=== PATIENT | male | born 1945 | race Caucasian/White ===

== ENCOUNTER 2019-03-23 19:05 | Inpatient (IN) | payer MEDICARE ==
[~2019-03-23] VITALS: Ht 182.9 cm; Wt 76.7 kg
[~2019-03-23 19:05] MED LIST: HEPARIN/D5W DRIP 500 ML IV PRN
--- NOTE | 2019-03-23 19:24 | NUR ---
Dr. Puentes at bedside for MSE.
[2019-03-23 20:02] LABS: BASOPHILS # (AUTO) 0.1 K/uL (0.0-8.0); EOSINOPHILS % (AUTO) 0.1 % (0.0-7.0); HEMOGLOBIN 12.4 g/dL (12.5-16.3); LYMPHOCYTES # (AUTO) 2.2 K/uL (20.0-40.0); LYMPHOCYTES % (AUTO) 25.1 % (20.5-51.5); MEAN CORPUSCULAR HEMOGLOBIN 29.8 uug (23.8-33.4); MEAN CORPUSCULAR HGB CONC 33 g/dL (32.5-36.3); MEAN CORPUSCULAR VOLUME 91.2 fL (73.0-96.2); MONOCYTES # (AUTO) 0.6 K/uL (2.0-10.0); MONOCYTES % (AUTO) 7.2 % (0.0-11.0); NEUTROPHILS # (AUTO) 5.8 K/uL (1.8-8.9); NEUTROPHILS % (AUTO) 66.6 % (38.5-71.5); PLATELET COUNT (AUTO) 244 K/uL (152-348); RED BLOOD CELL COUNT(AUTO) 4.17 MIL/uL (4.06-5.63); WHITE BLOOD COUNT (AUTO) 8.7 K/uL (3.6-10.2)
[2019-03-23 20:08] LABS: CREATININE 1.2 mg/dL (0.6-1.3); POTASSIUM 3.5 mmol/L (3.5-5.1)
[2019-03-23 20:22] LABS: BILIRUBIN,TOTAL 0.6 mg/dL (0.2-1.0); TOTAL PROTEIN, SERUM 7.4 g/dL (6.4-8.2)
--- NOTE | 2019-03-23 20:28 | NUR ---
Ultrasound at bedside.
[2019-03-23] MEDS ORDERED: ENOXAPARIN SODIUM 80 MG/0.8 ML DISP.SYRIN SQ ONE ×2 (20:51→21:00)
[2019-03-23] MEDS ORDERED: HYDR-4384 PO (21:53)
[2019-03-23] MEDS ORDERED: SUMA100T PO (21:53)
--- NOTE | 2019-03-23 21:54 | NUR ---
Called [facility] to page Karla Ponce NP.
--- NOTE | 2019-03-23 22:16 | NUR ---
Dr. Puentes on panel call with Karla Ponce NP. Patient accepted for admission to [facility], diagnosis: Right Arm deep vein thrombosis.
--- NOTE | 2019-03-23 22:21 | NUR ---
Report given to Will liquified natural gas specialist.
[2019-03-23] MEDS ORDERED: MAGNESIUM HYDROXIDE 30 ML LIQUID UDC PO PRN (22:30)
[2019-03-23] MEDS ORDERED: ONDANSETRON 4 MG/2 ML VIAL IV PRN (22:30)
[2019-03-23] MEDS ORDERED: ACETAMINOPHEN 325 MG TABLET PO PRN (22:30)
[2019-03-23] MEDS ORDERED: Z GUARD REMEDY PASTE 57 GM TUBE TOP PRN (22:30)
--- NOTE | 2019-03-23 22:50 | NUR ---
ADMITTED PATIENT IN TELE FLOOR UNDER THE CARE OF VIPIN GRANDE NP. PATIENT ALERT ORIENTED, CONTINENT, WITH R HAND THRU ARMS SWELLING 2+ EDEMA. TELE MONITOR A FIB 76. PATIENT HAS NO COMPLAIN OF PAIN AT THIS TIME. CONT TO MONITOR.
[2019-03-23 23:03] VITALS: BP 174/82
[2019-03-24] MEDS: IV NS 1000 ML 1,000 ML IV PRN (00:26)
[2019-03-24 00:48] VITALS: BP 166/86
--- NOTE | 2019-03-24 01:02 | NUR ---
PHARMACY CALLED AND SAID THAT TO HOLD HEPARIN DRIP AT THIS TIME, DUE PATIENT RECEIVED LOVENOX MEDICATION FROM ER DEPT. AND HEPARIN CAN BE STARTED TODAY AT 0900.
--- NOTE | 2019-03-24 03:35 | NUR ---
PATIENT ASLEEP BUT EASILY AROUSABLE, NO SOB NO CHEST PAIN, PATIENT HAS EPISODE OF BRADYCARDIA 59 BUT NOT SUSTAINABLE. CONT TO MONITOR
[2019-03-24 04:48] VITALS: BP 139/68
[2019-03-24 05:54] LABS: BASOPHILS # (AUTO) 0.1 K/uL (0.0-8.0); BASOPHILS % (AUTO) 1.5 % (0.0-2.0); EOSINOPHILS % (AUTO) 0.5 % (0.0-7.0); HEMATOCRIT 35.3 % (36.7-47.1); HEMOGLOBIN 11.5 g/dL (12.5-16.3); LYMPHOCYTES # (AUTO) 3.1 K/uL (20.0-40.0); LYMPHOCYTES % (AUTO) 37.1 % (20.5-51.5); MEAN CORPUSCULAR HEMOGLOBIN 30.4 uug (23.8-33.4); MEAN CORPUSCULAR HGB CONC 33 g/dL (32.5-36.3); MONOCYTES # (AUTO) 0.6 K/uL (2.0-10.0); MONOCYTES % (AUTO) 6.8 % (0.0-11.0); NEUTROPHILS # (AUTO) 4.6 K/uL (1.8-8.9); NEUTROPHILS % (AUTO) 54.1 % (38.5-71.5); PLATELET COUNT (AUTO) 209 K/uL (152-348); WHITE BLOOD COUNT (AUTO) 8.4 K/uL (3.6-10.2)
[2019-03-24] MEDS: PANTOPRAZOLE SODIUM 40 MG TABLET.DR PO SCH (06:19)
[2019-03-24 06:38] LABS: CREATININE 1.1 mg/dL (0.6-1.3); PHOSPHOROUS 3.5 mg/dL (2.5-4.9); POTASSIUM 3.4 mmol/L (3.5-5.1)
[2019-03-24 06:44] LABS: THYROID STIMULATING HORMONE 2.912 mIU/mL (0.358-3.740)
[2019-03-24] MEDS ORDERED: HEPARIN SODIUM,PORCINE 5,000 UNITS/ML VIAL IV PRN ×2 (06:45)
--- NOTE | 2019-03-24 07:08 | NUR ---
PATIENT ALERT ORIENTED, NO SOB NO CHEST PAIN, TELE MONITOR A FIB. R ARM STILL SWOLLEN, KEPT IT ELEVATED, CONT TO MONITOR.
--- NOTE | 2019-03-24 07:30 | NUR ---
Awake, alert, oriented x 4. RUE swollen, supported with pillow. Discussed plan of care
[2019-03-24] MEDS ORDERED: HEPARIN SODIUM,PORCINE 5,000 UNITS/ML VIAL IV ONE (09:00)
[2019-03-24] MEDS ORDERED: POTASSIUM CHLORIDE 20 MEQ TAB.PRT.SR PO ONE (09:15)
[2019-03-24] MEDS: HEPARIN/D5W DRIP 500 ML IV PRN ×2 (09:42→18:16)
[2019-03-24] MEDS ORDERED: IV NORMAL SALINE 250 ML IV ONE (10:49)
[2019-03-24] MEDS ORDERED: IOHEXOL 350 100 ML INFUS..BTL ONE (10:49)
[2019-03-24] MEDS ORDERED: SWABABLE VALVE TRANSFER SET EA MC ONE (10:49)
[2019-03-24 11:34] VITALS: BP 152/89
--- NOTE | 2019-03-24 12:30 | NUR ---
for CTA neck, chest, abdomen pelvis. Transported to Radiology. Off Heparin drip. Next PTT draw changed to 1630.
[2019-03-24] MEDS ORDERED: LORAZEPAM 2 MG/1 ML VIAL IV ONE (13:00)
--- NOTE | 2019-03-24 13:15 | NUR ---
Not able to finish CTA, with orders of Ativan, dose given
--- NOTE | 2019-03-24 17:00 | NUR ---
PTT 111.5 Heparin drip on hold, will resume in an hour decreased by 3 units
--- NOTE | 2019-03-24 18:00 | NUR ---
Heparin drip resumed with decreased rate by 3 units to 1050 units at 21 ml/hr. Repeat PTT ordered for 2400
[2019-03-24 18:07] VITALS: BP 130/76
--- NOTE | 2019-03-24 19:30 | NUR ---
RECEIVED PT AWAKE, ALERT AND ORIENTEDX4. PT IN NO ACUTE DISTRESS. IV INTACT. PT ON HEPARIN DRIP. SAFETY AND COMFORT PROVIDED. WILL CONTINUE TO MONITOR.
[2019-03-24 20:17] VITALS: BP 134/74
[2019-03-24] MEDS: HYDROCODONE/APAP 5-325MG TABLET PO PRN (22:28)
[2019-03-25 00:23] VITALS: BP 132/60
--- NOTE | 2019-03-25 00:44 | NUR ---
ANNALISA FROM LABORATORY CALLED FOR THE APTT RESULT. IT WAS 78.9. BASED ON THE PROTOCOL DECREASE DRIP BY 2 UNITS / KG/ H. PT IN NO ACUTE DISTRESS. WILL CONTINUE TO MONITOR.
--- NOTE | 2019-03-25 00:45 | NUR ---
REPEAT PTT ON 0700H
[2019-03-25] MEDS: HEPARIN/D5W DRIP 500 ML IV PRN ×2 (01:55→10:03)
[2019-03-25] MEDS: HYDROCODONE/APAP 5-325MG TABLET PO PRN ×5 (03:47→20:34)
[2019-03-25 04:00] VITALS: BP 125/68
[2019-03-25] MEDS: PANTOPRAZOLE SODIUM 40 MG TABLET.DR PO SCH (06:05)
[2019-03-25 06:20] LABS: THYROID STIMULATING HORMONE 2.605 mIU/mL (0.358-3.740)
[2019-03-25 06:22] LABS: POTASSIUM 3.7 mmol/L (3.5-5.1)
--- NOTE | 2019-03-25 06:36 | NUR ---
PT SLEPT INTERMITTENTLY. PT IN NO ACUTE DISTRESS. PT GIVEN 2 NORCO FOR PAIN ON HIS SHOULDERS.PRESCRIBED MEDICATION GIVEN AND PT TOLERATED IT WELL. SAFETY AND COMFORT PROVIDED. WILL CONTINUE TO MONITOR. WILL ENDORSE TO INCOMING NURSE FOR CONTINUITY OF CARE.
--- NOTE | 2019-03-25 07:37 | NUR ---
PATIENT RECEIVED IN BED WITH HEPARIN DRIP IN PROGRESS AT 900 UNITS PER HOUR ORDERED PENDING PTT RESULTS THIS AM PATIENT IS AWAKE ALERT AND ORIENTED NO S/S OF PAIN OR DISCOMFORTS AT THIS TIME.CALL LIGHTS AND PERSONAL BELONGINGS ARE WITHIN EASY REACH WILL CONTINUE TO OBSERVE.
[2019-03-25 09:16] LABS: BASOPHILS # (AUTO) 0.1 K/uL (0.0-8.0); BASOPHILS % (AUTO) 1.3 % (0.0-2.0); EOSINOPHILS # (AUTO) 0.1 K/uL (0.0-0.7); EOSINOPHILS % (AUTO) 1.4 % (0.0-7.0); HEMATOCRIT 35.9 % (36.7-47.1); HEMOGLOBIN 11.5 g/dL (12.5-16.3); LYMPHOCYTES # (AUTO) 2.5 K/uL (20.0-40.0); LYMPHOCYTES % (AUTO) 35.2 % (20.5-51.5); MEAN CORPUSCULAR HGB CONC 32 g/dL (32.5-36.3); MEAN CORPUSCULAR VOLUME 93.4 fL (73.0-96.2); MONOCYTES # (AUTO) 0.5 K/uL (2.0-10.0); MONOCYTES % (AUTO) 6.5 % (0.0-11.0); NEUTROPHILS % (AUTO) 55.6 % (38.5-71.5); PLATELET COUNT (AUTO) 226 K/uL (152-348); RED BLOOD CELL COUNT(AUTO) 3.84 MIL/uL (4.06-5.63); WHITE BLOOD COUNT (AUTO) 7.2 K/uL (3.6-10.2)
[2019-03-25] MEDS ORDERED: SUMATRIPTAN SUCCINATE 50 MG TABLET PO PRN (10:00)
[2019-03-25 11:25] VITALS: BP 140/72
--- NOTE | 2019-03-25 11:38 | NUR ---
SEEN AND EXAMINED BY EDUIN [employer]ER[employer] HELICOPTER PILOT WITH NEW ORDERS AND NOTED REMAIN ON HEPARIN DRIP ORDERED WITH NO ADVERSE OR ALLERGIC REACTIONS AT THIS TIME.
[2019-03-25 13:19] LABS: *OCCULT BLOOD STOOL NEGATIVE (NEGATIVE)
--- NOTE | 2019-03-25 14:35 | NUR ---
PATIENT CONTINUE ON HEPARIN DRIP ORDERED WITH ADVERSE EFFECT PAIN MEDICATIONS ORDERED PER HIS REQUEST AND EFFECTIVE WILL CONTINUE TO OBSERVE.
[2019-03-25 15:37] VITALS: BP 148/86
[2019-03-25 15:56] LABS: *BILIRUBIN,URIN NEGATIVE (NEGATIVE); *BLOOD, URINE NEGATIVE (NEGATIVE); *CLARITY,URINE CLEAR (CLEAR); *COLOR,URINE YELLOW (YELLOW); *KETONES,URINE NEGATIVE (NEGATIVE); LEUKOCYTE ESTERASE ,URINE NEGATIVE (NEGATIVE); NITRITE, URINE NEGATIVE (NEGATIVE); UGLUCOSE NEGATIVE (NEGATIVE)
[2019-03-25] MEDS: IV NS 1000 ML 1,000 ML IV PRN (16:05)
[2019-03-25 16:22] LABS: WBC,URINE 0-3 /HPF (0-3)
--- NOTE | 2019-03-25 18:00 | NUR ---
LEFT ARM REMAINS SWOLLEN ELEVATED ON THE PILLOW REMAINS ON HEPARIN DRIP ORDERED PTT ORDERED FOR TOMORROW AM NO BLEEDING NOTED ALERT ORIENTED AND VERBALISED NEEDS WILL CONTINUE TO OBSERVE AND PROMOTE COMFORT
--- NOTE | 2019-03-25 19:30 | NUR ---
Received report from outgoing nurse. Patient is received in bed, awake, alert and verbally responsive. Pt is ambulatory and had just come back from the bathroom at this time. Pt able to have bowel movement (x3 well formed stool). No issues with urination. Complains of generalized body pain, 4/10 but slowly increasing, according to him, pain meds given earlier during the day is "probably wearing" off. According to him, he has chronic pain and needs his medications around the clock. Will administer when able to. Pt denies chest pain, headache, or any other discomfort aside from the generalized body pain/also on r shoulder. R arm still swollen, but patient is able to open and close fists, according to him, it is a great improvement from yesterday. Heparin drip is still running at 900 units (18cc/hr), along with IV fluids of NS at 25cc/hr on L AC 20G. No issues with IV site. Patent with no signs of infiltration. Patient also without signs of bleeding. Patient is showing AFIB on Tele, controlled between 70-90 bpm. Will continue to monitor patient and manage symptoms.
[2019-03-25 20:09] VITALS: BP 139/84
--- NOTE | 2019-03-25 22:30 | NUR ---
Patient with 2 episodes of increased HR on Afib above 100, highest went up to 140 bpm (at around 2150). Not sustained, goes back to 70-90s rate after 1-2 minutes. Checked on patient at this time, asymptomatic. Denies chest pain/arm pain/head ache. Same level of mental status and cognitive level. BP checked: 160/95. Reviewed records and relayed to MD. New order received for Metoprolol 25 mg now and then Q12H. Will carryout order and give medications once cleared by pharmacy/available. Patient kept on hourly monitoring, will report to MD for any further changes.
[2019-03-25] MEDS ORDERED: METOPROLOL TARTRATE 25 MG TABLET PO ONE (23:38)
[2019-03-26] VITALS: BP 161/88
[2019-03-26] MEDS: HYDROCODONE/APAP 5-325MG TABLET PO PRN ×5 (00:43→21:59)
--- NOTE | 2019-03-26 02:25 | NUR ---
Rechecked BP: 148/83. Pt verbalizes feeling anxious and unable to sleep. Denies chest pain, headache, or any discomfort. Wilfrido Elias HEAV[employer] EQUIPMENT SERVICE TECHNICIAN notified, received orders. Noted and carried out.
[2019-03-26] MEDS ORDERED: LORAZEPAM 0.5 MG TABLET PO PRN (02:45)
[2019-03-26 04:56] VITALS: BP 143/68
[2019-03-26] MEDS: PANTOPRAZOLE SODIUM 40 MG TABLET.DR PO SCH (06:05)
[2019-03-26 06:23] LABS: BASOPHILS % (AUTO) 0.6 % (0.0-2.0); EOSINOPHILS # (AUTO) 0.1 K/uL (0.0-0.7); EOSINOPHILS % (AUTO) 1.7 % (0.0-7.0); HEMATOCRIT 35.4 % (36.7-47.1); HEMOGLOBIN 11.5 g/dL (12.5-16.3); LYMPHOCYTES # (AUTO) 2.8 K/uL (20.0-40.0); LYMPHOCYTES % (AUTO) 36.3 % (20.5-51.5); MEAN CORPUSCULAR HEMOGLOBIN 30.3 uug (23.8-33.4); MEAN CORPUSCULAR HGB CONC 33 g/dL (32.5-36.3); MEAN CORPUSCULAR VOLUME 93.2 fL (73.0-96.2); MONOCYTES # (AUTO) 0.5 K/uL (2.0-10.0); MONOCYTES % (AUTO) 6.2 % (0.0-11.0); NEUTROPHILS # (AUTO) 4.3 K/uL (1.8-8.9); NEUTROPHILS % (AUTO) 55.2 % (38.5-71.5); PLATELET COUNT (AUTO) 219 K/uL (152-348); WHITE BLOOD COUNT (AUTO) 7.8 K/uL (3.6-10.2)
--- NOTE | 2019-03-26 06:26 | NUR ---
Patient BP stabilized after x1 dose of Metoprolol 25 mg. However, HR decreased from 80-115 Afib to 55-65 Afib. Pt with no signs of distress or discomfort. Denies any chest pain or headache. However, with generalized body pain 10/19, [place] 5/325 mg given. Slept intermittently after Ativan 0.5mg give at around 0230. Heparin drip still running at 900 units/hr with no signs of bleeding. Needs attended at this time will continue to monitor and endorse accordingly.
[2019-03-26 06:35] LABS: CREATININE 1.2 mg/dL (0.6-1.3); POTASSIUM 3.9 mmol/L (3.5-5.1)
--- NOTE | 2019-03-26 08:00 | NUR ---
AWAKE ALERT AND ORIENT X3 NO SS F PAIN OR DISTRESS. PATIENT SATURATING 98%
[2019-03-26 08:08] LABS: *IMMUNOGLOBULIN G, SERUM 946 mg/dL (700-1600); HEPATITIS B SURFACE AB Non Reactive (.); HEPATITIS B SURFACE AG Negative (Negative); IMMUNOGLOBULIN A, SERUM 175 mg/dL (61-437); IMMUNOGLOBULIN M, SERUM 39 mg/dL (15-143)
[2019-03-26] MEDS: FERROUS SULFATE 325 MG TABEC PO SCH (08:40)
[2019-03-26] MEDS: METOPROLOL TARTRATE 25 MG TABLET PO SCH ×3 (08:51→20:59)
[2019-03-26 11:22] VITALS: BP 124/88
--- NOTE | 2019-03-26 12:00 | NUR ---
NO ACUTE CHANGE CONTINUE HEPARIN DRIP PER PROTOCOL
[2019-03-26 12:06] LABS: AFP, TUMOR MARKER 1.2 ng/mL (0.0-8.3)
[2019-03-26] MEDS: HEPARIN/D5W DRIP 500 ML IV PRN (13:58)
--- NOTE | 2019-03-26 15:30 | NUR ---
CONTINUE WITH HEPARIN DRIP PER PROTOCOL. PTT 63. NO CHANGE IN HEPARIN DRIP AT 900 UNITS/18 ML/HR. NO ACTIVE OR SS OF BLEEDING
[2019-03-26 15:53] VITALS: BP 142/49
[2019-03-26 20:03] VITALS: BP 121/62
[2019-03-27 01:26] VITALS: BP 123/73
[2019-03-27] MEDS: HYDROCODONE/APAP 5-325MG TABLET PO PRN (03:33)
[2019-03-27 05:34] VITALS: BP 133/65
[2019-03-27] MEDS: PANTOPRAZOLE SODIUM 40 MG TABLET.DR PO SCH (06:05)
[2019-03-27 06:06] LABS: A/G RATIO 1.3 (0.7-1.7); ALBUMIN 3.3 g/dL (2.9-4.4); ALPHA-1-GLOBULIN 0.3 g/dL (0.0-0.4); ALPHA-2-GLOBULIN 0.6 g/dL (0.4-1.0); BETA GLOBULIN 0.9 g/dL (0.7-1.3); GAMMA GLOBULIN 0.8 g/dL (0.4-1.8); GLOBULIN, TOTAL 2.6 g/dL (2.2-3.9); M-SPIKE Not Observed g/dL (Not Observed)
[2019-03-27 06:43] LABS: BASOPHILS # (AUTO) 0.1 K/uL (0.0-8.0); BASOPHILS % (AUTO) 1.2 % (0.0-2.0); EOSINOPHILS # (AUTO) 0.2 K/uL (0.0-0.7); EOSINOPHILS % (AUTO) 3.1 % (0.0-7.0); HEMATOCRIT 34.1 % (36.7-47.1); HEMOGLOBIN 11.1 g/dL (12.5-16.3); LYMPHOCYTES # (AUTO) 2.6 K/uL (20.0-40.0); LYMPHOCYTES % (AUTO) 37.2 % (20.5-51.5); MEAN CORPUSCULAR HEMOGLOBIN 29.6 uug (23.8-33.4); MEAN CORPUSCULAR HGB CONC 33 g/dL (32.5-36.3); MEAN CORPUSCULAR VOLUME 90.6 fL (73.0-96.2); MONOCYTES # (AUTO) 0.5 K/uL (2.0-10.0); MONOCYTES % (AUTO) 6.9 % (0.0-11.0); NEUTROPHILS # (AUTO) 3.6 K/uL (1.8-8.9); NEUTROPHILS % (AUTO) 51.6 % (38.5-71.5); PLATELET COUNT (AUTO) 226 K/uL (152-348); RED BLOOD CELL COUNT(AUTO) 3.76 MIL/uL (4.06-5.63)
[2019-03-27 06:55] LABS: BILIRUBIN,TOTAL 0.6 mg/dL (0.2-1.0); CREATININE 1.2 mg/dL (0.6-1.3); MAGNESIUM 2.1 mg/dL (1.8-2.4); PHOSPHOROUS 4.4 mg/dL (2.5-4.9); POTASSIUM 3.9 mmol/L (3.5-5.1); TOTAL PROTEIN, SERUM 6.4 g/dL (6.4-8.2)
--- NOTE | 2019-03-27 07:10 | NUR ---
Patient slept intermittently. PRN [place] 5-325mg given x 2 this shift for pain on both shoulders. Afib on Tele monitor. IV on L AC intact and patent, patient still on Heparin drip 900 units at 18cc/hr. All needs attended. Will endorse accordingly
--- NOTE | 2019-03-27 08:00 | NUR ---
AWAKE ALERT AND ORIENTED X3 C/O MIGRAINE ESPINAL. NO SS OF DISTRESS, DIZZINESS, N/V. SR ON MONITOR
[2019-03-27] MEDS: FERROUS SULFATE 325 MG TABEC PO SCH (08:26)
[2019-03-27] MEDS: METOPROLOL TARTRATE 25 MG TABLET PO SCH (08:27)
--- NOTE | 2019-03-27 08:29 | NUR ---
lopessor not given HR 55/min
--- NOTE | 2019-03-27 10:19 | NUR ---
MEDICATED FOR SEVERE HEADACHE WITH IMITREX WITH RELIEF. SR ON MONITOR. PLAN DC HOME TODAY. SEE RIPENING ROOM OPERATOR NOTES
[2019-03-27 11:09] LABS: BETA-2-GLYCOPROTEIN IGG/M/A < 9 (0-25)
[2019-03-27 11:46] VITALS: BP 137/75
[2019-03-27] MEDS ORDERED: RIVAROXABAN 15 MG TABLET PO SCH (13:15)
[2019-03-27] MEDS ORDERED: FERR325T28 PO (13:18)
[2019-03-27] MEDS ORDERED: RIVA15TA PO (13:18)
[2019-03-27] MEDS ORDERED: METO25TA6 PO (13:18)
--- NOTE | 2019-03-27 14:16 | NUR ---
MEDICATION AND DISCHARGE INSTRUCTION GIVEN AND FOLLOW-UP WITH PCP. PATIENT SAID WILL CALL FOR HIS APPOINTMENT
--- NOTE | 2019-03-27 14:47 | NUR ---
discharged home stable via private car with RX instruction and education by pharmacy
[2019-03-27 20:06] LABS: PTT-LA 40.9 sec (0.0-51.9); THROMBIN NEUTRALIZATION 21.7 sec (0.0-23.0); THROMBIN TIME >150.0 sec (0.0-23.0); THROMBIN TIME MIX >150.0 sec (0.0-23.0)
[2019-03-27 21:06] LABS: LUPUS INTERPRETATION Comment: (.)
== END 2019-03-27 14:40 | disposition home or self-care (01) | DRG 300 ==
LOC: ER 19:11 → TELE3 22:28
PROVIDERS: ADMIT Registered Nurse
DX: I82.621 Acute embolism and thrombosis of deep veins of right upper extremity (principal); I31.1 Chronic constrictive pericarditis; G43.909 Migraine, unspecified, not intractable, without status migrainosus; I48.91 Unspecified atrial fibrillation; F11.10 Opioid abuse, uncomplicated; I82.611 Acute embolism and thrombosis of superficial veins of right upper extremity; K74.60 Unspecified cirrhosis of liver; I08.3 Combined rheumatic disorders of mitral, aortic and tricuspid valves; D63.8 Anemia in other chronic diseases classified elsewhere; I67.2 Cerebral atherosclerosis; N18.9 Chronic kidney disease, unspecified; D32.0 Benign neoplasm of cerebral meninges; R79.89 Other specified abnormal findings of blood chemistry; Z95.828 Presence of other vascular implants and grafts
CPT/HCPCS: 36415; 70450; 70491; 71275; 82105; 82784; 83550; 83735; 84100; 84155; 84165; 84443; 85025; 85305; 85613; 85651; 85730; 86334; 86706; 86803; 87340; 93005; 93307; A4663; G0378; J1644; J1650; J2060; J7030; J7050; Q9967

== ENCOUNTER 2020-03-01 09:43 | Emergency (ER) | payer MEDICARE ==
[~2020-03-01] VITALS: Ht 182.9 cm; Wt 68.0 kg
[~2020-03-01 09:43] MED LIST changes: +FERR325T28 PO; -HEPARIN/D5W DRIP 500 ML IV PRN; +HYDR-4384 PO; +METO25TA6 PO; +RIVA15TA PO; +SUMA100T PO
== END 2020-03-01 10:49 | disposition left against medical advice (07) ==
LOC: ER 09:43
DX: Z75.3 Unavailability and inaccessibility of health-care facilities (principal)

== ENCOUNTER 2020-04-15 05:01 | Emergency (ER) | payer MEDICARE ==
[~2020-04-15] VITALS: Ht 182.9 cm; Wt 70.3 kg
--- NOTE | 2020-04-15 05:39 | NUR ---
Dr Puentes into eval patient.
--- NOTE | 2020-04-15 06:10 | NUR ---
Patient discharged to home in stable condition. Written and verbal after care instructions given. Patient verbalizes understanding of instructions. Stressed follow up or return to ER for worsening s/s.
== END 2020-04-15 06:11 | disposition home or self-care (01) ==
LOC: ER 05:12
DX: F11.23 Opioid dependence with withdrawal (principal); Z79.899 Other long term (current) drug therapy; R03.0 Elevated blood-pressure reading, without diagnosis of hypertension
CPT/HCPCS: A4663

== ENCOUNTER 2020-08-29 19:40 | Emergency (ER) | payer MEDICARE ==
[~2020-08-29] VITALS: Ht 182.9 cm; Wt 72.6 kg
[~2020-08-29 19:40] MED LIST changes: -FERR325T28 PO; -RIVA15TA PO
--- NOTE | 2020-08-29 20:00 | NUR ---
Patient ambulatory in room with steady gait, A/Ox3 with kerlix dressing on head due to laceration from drip and fall from home. Patient states " I tripped on a pipe on the floor and hit my head on the ground." Patient denies LOC. No distress noted.
[2020-08-29] MEDS ORDERED: TDAP DIPH,PERTUSS,TET VAC/PF 0.5 ML DISP.SYRIN IM ONE ×2 (20:15→20:53)
[2020-08-29] MEDS ORDERED: SODIUM BICARBONATE 4.2 % (NEUT) 5 ML VIAL TP ONE (20:15)
[2020-08-29] MEDS ORDERED: LIDOCAINE 1%-EPI 1:100,000 20 ML VIAL IJ ONE (20:15)
[2020-08-29] MEDS ORDERED: CEphaleXIN 500 MG CAPSULE PO ONE (20:15)
[2020-08-29] MEDS ORDERED: SODIUM BICARBONATE 4.2 % (NEUT) 5 ML VIAL ONE (20:53)
[2020-08-29] MEDS ORDERED: CEphaleXIN 500 MG CAPSULE ONE (20:53)
[2020-08-29] MEDS ORDERED: CEPH500C2 PO (21:06)
[2020-08-29] MEDS ORDERED: LORAZEPAM 1 MG TABLET ONE (21:12)
[2020-08-29] MEDS ORDERED: LORAZEPAM 0.5 MG TABLET PO ONE (21:15)
[2020-08-29] MEDS ORDERED: NEOMY/BACITRA/POLYMYXIN B OINT UD PACKET TP ONE ×2 (21:45→21:48)
--- NOTE | 2020-08-29 22:00 | NUR ---
Cleaned left knee abrasion with NS and betadine and apply triple antibiotic on left knee with bandaid as ordered by ERMMerari.
--- NOTE | 2020-08-29 22:28 | NUR ---
Patient discharged to home in stable condition with family taking patient home. Written and verbal after care instructions given. Patient verbalizes understanding of instructions. Stressed follow up or return to ER for worsening s/s.
[2020-08-29 22:35] VITALS: BP 140/82
== END 2020-08-29 22:35 | disposition home or self-care (01) ==
LOC: ER 19:42
DX: S01.112A Laceration without foreign body of left eyelid and periocular area, initial encounter (principal); S80.212A Abrasion, left knee, initial encounter; W01.0XXA Fall on same level from slipping, tripping and stumbling without subsequent striking against object, initial encounter; Y92.89 Other specified places as the place of occurrence of the external cause; Z86.73 Personal history of transient ischemic attack (TIA), and cerebral infarction without residual deficits; Z86.69 Personal history of other diseases of the nervous system and sense organs; S09.90XA Unspecified injury of head, initial encounter
CPT/HCPCS: 12011; 70450; 90471; 90715; 99284; J3490 ×2; A4217; A4663